=== PATIENT | female | born 1990 ===

== ENCOUNTER 2017-08-21 22:08 | Emergency (ER) | payer MEDICAID, OTHER ==
[2017-08-21 22:08] VITALS: BMI 19.8
[2017-08-21 22:49] VITALS: TEMP 98.2; O2SAT 99
--- NOTE | 2017-08-22 00:41 | ED PDOC ---
HPI: Chest Pain Time Seen by Provider: 08/21/17 23:41 Chief Complaint (Nursing): Chest Pain Chief Complaint (Provider): chest pain History Per: Patient History/Exam Limitations: no limitations Quality: Sharp Additional Complaint(s): 26yo F in ED for eval of chest pain left sided mid clavicular sharp intense constant pain since May with f/u with cardiology in Jun 2017-pt states she has not f/u with cardiology since then-denies dizziness, SOB, radiation of chest pain to back, abdominal pain.no recent injuries no recent flights/prolonged car rides, no hormonal therapy. 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 - Risk Factors PE Risk Factors: Neg: Extremity Immobilization/Fx, Decreased Mobilty /Activity, Recent Major Surgery, Recent Hospitalization, Active Cancer, Previous DVT, Previous PE, CHF, Venous Stasis, Estrogen Usage, , Post-, Recent Major Trauma TAD Risk Factors: Neg: Hypertension, Connective Tissue Disease, Marfan's Syndrome, Sophia- Danlos Syndrome, Aortic Valve Disease, Active , Tumer's Syndrome, First Degree Relative With TAD, Sudden Onset Of Pain, Migration Of Pain, New Neurologic Symptoms Past Medical History Reviewed: Historical Data, Nursing Documentation, Vital Signs Vital Signs: Last Vital Signs Temp 98.2 F 08/21/17 22:47 Pulse 76 08/21/17 22:47 Resp 16 08/21/17 22:47 BP 104/52 L 08/21/17 22:47 Pulse Ox 99 08/22/17 01:12 - Surgical History Surgical History: Denies: Pacemaker - Family History Family History: States: Unknown Family Hx - Immunization History Hx Tetanus Toxoid Vaccination: No Hx Influenza Vaccination: No Hx Pneumococcal Vaccination: No - Home Medications Home Medications: Ambulatory Orders Medication Instructions Recorded Calcium Carbonate [Calcium] 600 mg PO DAILY 03/23/15 Pantoprazole Sodium [Protonix] 40 mg PO DAILY #14 ect 12/30/15 Albuterol HFA [Ventolin HFA 90 2 puff IH Q6 #200 puff 08/22/17 mcg/actuation (8 g)] - Allergies Allergies/Adverse Reactions: Allergies Allergy/AdvReac Type Severity Reaction Status Date / Time No Known Allergies Allergy Verified 08/21/17 22:46 RICHIE Risk Score for UA/NSTEMI - RICHIE Risk Score Age > 64: NO 3 or more CAD Risk Factors: NO Known CAD (Stenosis greater than 50%): NO Aspirin use in past 7 days: NO Severe Angina: NO EKG ST changes greater than 0.5mm: NO Positive Cardiac Marker: NO RICHIE Score: 0 Risk %: 5% Curb-65 Severity Score - CURB-65 Severity Score Confusion: No Bun >19mg/dl (>7mmol/L): No Respiratory Rate greater than/equal to 30: No Systolic BP <90 or Diastolic BP less than/equal 60mmHg: No Age >64: No Curb-65 Score: 0 Percentage 30-day mortality: 0.6% Wells Criteria for PE - Wells Criteria for Pulmonary Embolism Clinical Signs and Symptoms of DVT: No P.E is #1 Diagnosis, or Equally Likely: No Heart Rate >100: No Immobilization at least 3 days;Surgery previous 4 weeks: No Previous, objectively diagnosed PE or DVT: No Hemoptysis: No Malignancy w/treatment within 6 months, or palliative: No Total Score: 0 Review of Systems ROS Statement: Except As Marked, All Systems Reviewed And Found Negative Constitutional: Negative for: Fever, Weakness Eyes: Negative for: Vision Change Cardiovascular: Positive for: Chest Pain. Negative for: Palpitations, Orthopnea , Paroxysmal Noc. Dyspnea Respiratory: Negative for: Cough, Shortness of Breath, SOB with Exertion, Pleuritic Pain Physical Exam - Reviewed Nursing Documentation Reviewed: Yes Vital Signs Reviewed: Yes - Physical Exam Appears: Positive for: Non-toxic, No Acute Distress, Uncomfortable Head Exam: Positive for: ATRAUMATIC, NORMAL INSPECTION, NORMOCEPHALIC Skin: Positive for: Normal Color, Warm, DRY Eye Exam: Positive for: EOMI, Normal appearance, PERRL ENT: Positive for: Normal ENT Inspection Neck: Positive for: Normal, Painless ROM Cardiovascular/Chest: Positive for: Regular Rate, Rhythm Respiratory: Positive for: CNT, Normal Breath Sounds Gastrointestinal/Abdominal: Positive for: Normal Exam, Bowel Sounds, Soft Back: Positive for: Normal Inspection Extremity: Positive for: Normal ROM Neurologic/Psych: Positive for: Alert, Oriented - Laboratory Results Result Diagrams: 08/22/17 00:10 08/22/17 00:10 - ECG O2 Sat by Pulse Oximetry: 99 - Progress ED Course And Treament: Orders Category Date Time Status COMP METABOLIC PANEL Stat Chem 08/22/17 00:02 Ordered MAGNESIUM Stat Chem 08/22/17 00:02 Ordered CBC (WITH DIFFERENTIAL) Stat RACHAEL 08/22/17 00:02 Ordered D DIMER [COAG] Stat RACHAEL 08/22/17 00:02 Ordered ERYTHROCYTE SEDIMENTATION RATE Stat RACHAEL 08/22/17 00:02 Ordered PARTIAL THROMBOPLASTIN TIME [COAG] Stat RACHAEL 08/22/17 00:02 Ordered PROTHROMBIN TIME [COAG] Stat RACHAEL 08/22/17 00:02 Ordered Ketorolac [Toradol] Med 08/22/17 00:07 Discontinued 30 mg .ROUTE .STK-MED ONE Ketorolac [Toradol] Med 08/22/17 00:00 Discontinued 30 mg IVP STAT STA URINALYSIS Stat URINALYSIS 08/22/17 00:02 Ordered PT with elevated D-dimer will get CT of chest to r/o PE. Medical Decision Making Medical Decision Making: dx: FINDINGS: Pulmonary arteries: No CT evidence for pulmonary embolus. Aorta: No acute findings. No thoracic aortic aneurysm. Lungs: There is bibasilar atelectasis. No mass. Pleural space: Unremarkable. No significant effusion. No pneumothorax. Heart: Unremarkable. No cardiomegaly. No significant pericardial effusion. Bones/joints: No acute fracture. No dislocation. Soft tissues: Unremarkable. Lymph nodes: Unremarkable. No enlarged lymph nodes. IMPRESSION: 1. No CT evidence for pulmonary embolus. 2. There is bibasilar atelectasis. Pt without evidence of PE. pt given albuterol and advised to f.u with pmd/pulmonary. stable VS. Disposition - Clinical Impression Clinical Impression: Atelectasis of both lungs - Patient ED Disposition Is Patient to be Admitted: No Counseled Patient/Family Regarding: Studies Performed, Diagnosis, Need For Followup, Rx Given - Disposition Disposition: Routine/Home Disposition Time: 04:06 Condition: STABLE Prescriptions: Albuterol HFA [Ventolin HFA 90 mcg/actuation (8 g)] 2 puff IH Q6 #200 puff Instructions: Atelectasis (ED) Forms: [employer] ([employer])
[2017-08-22 00:44] LABS: BASO % 0.6 % (0.0-2.0); EOS # 0.1 K/uL (0.0-0.7); EOS % 2.9 % (0.0-4.0); HEMATOCRIT 37.1 % (34.0-47.0); LYMPH # 1.8 K/uL (1.0-4.3); LYMPH % 39.5 % (20.0-40.0); MEAN CELL VOLUME 87.7 fl (81.0-99.0); MEAN CORPUSCULAR HEMOGLOBIN 29.7 pg (27.0-31.0); MEAN CORPUSCULAR HGB CONC 33.9 g/dL (33.0-37.0); MEAN PLATELET VOLUME 8.2 fl (7.2-11.7); MONO # 0.6 K/uL (0.0-0.8); MONO % 12.4 % (0.0-10.0); NEUT % 44.6 % (50.0-75.0); NRBC % 0.3 % (0.0-0.0); PLATELET COUNT 165 K/uL (130-400); RED CELL DISTRIBUTION WIDTH 13.2 % (11.5-14.5); WHITE BLOOD COUNT 4.5 K/uL (4.8-10.8)
[2017-08-22 00:54] LABS: RBC URINE 3 /hpf (0-3); URINE BILIRUBIN NEGATIVE (NEGATIVE); URINE BLOOD NEGATIVE (NEGATIVE); URINE COLOR YELLOW (YELLOW); URINE GLUCOSE (UA) NEG (Normal); URINE KETONE NEGATIVE (NEGATIVE); URINE LEUKOCYTE ESTERASE NEG Leu/uL (Negative); URINE PROTEIN 30 mg/dL (NEGATIVE); WBC URINE 2 /hpf (0-5)
[2017-08-22 00:59] LABS: ALB/GLOB RATIO 1.3 (1.0-2.1); ALKALINE PHOSPHATASE 48 U/L (38-126); ALT/SGPT 25 U/L (9-52); AST/SGOT 21 U/L (14-36); BILIRUBIN,TOTAL 0.6 mg/dl (0.2-1.3); BLOOD UREA NITROGEN 13 mg/dl (7-17); CALCIUM 8.8 mg/dL (8.4-10.2); CARBON DIOXIDE 27 mmol/L (22-30); CHLORIDE 103 mmol/L (98-107); GFR AFRICAN-AMERICAN > 60; GLUCOSE,RANDOM 79 mg/dL (65-105); MAGNESIUM 2.1 MG/DL (1.6-2.3); SODIUM 139 mmol/l (132-148); TOTAL PROTEIN 7.7 G/DL (6.3-8.2)
[2017-08-22 01:08] LABS: PARTIAL THROMBOPLASTIN TIME 28.9 Seconds (25.6-37.1)
[2017-08-22 01:43] LABS: ERYTHROCYTE SEDIMENTATION RATE QNS mm/hr (0-20)
[2017-08-22] MEDS ORDERED: Sodium Chloride 0.9% 50 ML IV ONE (02:38)
[2017-08-22] MEDS ORDERED: Iodixanol 320 MG/ML 100 ML BOTTLE IV ONE (02:38)
[2017-08-22 05:32] VITALS: BP 104/66; PULSE 72; RESP 18
--- NOTE | 2017-08-22 06:29 | CT ---
PROCEDURE: CT Chest with contrast (Pulmonary Angiogram) HISTORY: CP ith elevated Ddimer COMPARISON: None available. TECHNIQUE: Axial computed tomography images were obtained of the chest in the pulmonary arterial phase of enhancement. Coronal and sagittal reformatted images were created and reviewed. Maximum intensity projection (MIP) reconstructed images in the following planes: Axial projection only Intravenous contrast dose: 90 cc Visipaque 320 Mean Hounsfield unit values in the main pulmonary artery: 341.52 Radiation dose: Total exam DLP = 163.65 mGy-cm. This CT exam was performed using one or more of the following dose reduction techniques: Automated exposure control, adjustment of the mA and/or kV according to patient size, and/or use of iterative reconstruction technique. FINDINGS: PULMONARY ARTERIES: Unremarkable. No pulmonary embolism. AORTA: No acute findings. No thoracic aortic aneurysm. LUNGS: Unremarkable. No nodule, mass or pulmonary consolidation. PLEURAL SPACES: Unremarkable. No effusion or pneuomothorax. HEART: Unremarkable. No cardiomegaly. No significant pericardial effusion. LYMPH NODES: No lymphadenopathy. BONES, CHEST WALL: Unremarkable. No fracture or destructive lesion OTHER FINDINGS: Unremarkable. IMPRESSION: Unremarkable CT pulmonary angiogram. No pulmonary embolus. Concordant results (preliminary interpretation) provided by [employer]. Procedure Completed: 02:37 Preliminary ([facility]) Report: Dictated and Authenticated: 03:23. Final Interpretation: 06:27. August 22, 2017.
== END 2017-08-22 05:20 | disposition home or self-care (01) ==
LOC: H.ER 22:08
DX: J98.11 Atelectasis (principal)
CPT/HCPCS: 71275; 80053; 81003; 81025; 83735; 85025; 85378; 85610; 85730; 96374; 99282; J1885; Q9967